=== PATIENT | female | born 1945 | race Native Hawaiian/Other Pacific Islander ===

== ENCOUNTER 2016-10-11 18:14 | Outpatient (CLI) | payer OTHER ==
[~2016-10-11 18:14] MED LIST: AMLO2.5T PO; CLOP75TA2 PO; LISI20TA11 PO; METF100038 PO; METO50TA27 PO; TIMOLOL MALEATE0.5 % OP; UNITH DIRECT75 MCG PO
== END 2016-10-11 18:18 | disposition short-term general hospital (02) ==
LOC: AMB 18:14
DX: M79.604 Pain in right leg (principal); W18.39XA Other fall on same level, initial encounter; Y92.128 Other place in nursing home as the place of occurrence of the external cause
CPT/HCPCS: A0425; A0429

== ENCOUNTER 2016-10-11 18:21 | Emergency (ER) | payer OTHER ==
[~2016-10-11] VITALS: Ht 165.1 cm; Wt 110.7 kg
[2016-10-11 18:29] VITALS: TEMP 97.1
[2016-10-11 21:01] VITALS: BP 155/76
== END 2016-10-11 21:30 | disposition short-term general hospital (02) ==
LOC: ED 18:21
DX: S72.091A Other fracture of head and neck of right femur, initial encounter for closed fracture (principal); M85.861 Other specified disorders of bone density and structure, right lower leg; E11.9 Type 2 diabetes mellitus without complications; W18.39XA Other fall on same level, initial encounter; Y92.128 Other place in nursing home as the place of occurrence of the external cause
CPT/HCPCS: 96372; 96374; 99285; J1885; J2405

== ENCOUNTER 2022-03-10 09:51 | Emergency (ER) | payer OTHER ==
[~2022-03-10] VITALS: Ht 162.6 cm; Wt 99.8 kg
[2022-03-10 09:51] VITALS: BP 138/78; TEMP 97.6
[2022-03-10 10:17] LABS: PLATELET COUNT 218 K/uL (152-353)
[2022-03-10 10:32] LABS: POTASSIUM 3.9 mmol/L (3.6-5.2)
[2022-03-10] MEDS ORDERED: ACTOS15 MG PO (12:57)
[2022-03-10] MEDS ORDERED: ASPIRIN 81 LOW81 MG PO (12:58)
[2022-03-10] MEDS ORDERED: ALLO100T22 PO (12:58)
[2022-03-10] MEDS ORDERED: DULOXETINE HCL30 MG PO (13:00)
[2022-03-10] MEDS ORDERED: LEVO0.1224 PO (13:00)
[2022-03-10] MEDS ORDERED: MULTIVITAMIN AD1 TA2 PO (13:04)
[2022-03-10] MEDS ORDERED: ASENAPINE MALE2.5 MG SL (13:05)
[2022-03-10] MEDS ORDERED: BACTRIM1 TAB PO (13:07)
[2022-03-10] MEDS ORDERED: ASCO500T18 PO (13:08)
[2022-03-10] MEDS ORDERED: BACL10TA4 PO (13:08)
[2022-03-10] MEDS ORDERED: ELIQUIS5 MG PO (13:10)
[2022-03-10] MEDS ORDERED: LEVE500T5 PO (13:11)
[2022-03-10] MEDS ORDERED: GABA300C2 PO (13:14)
[2022-03-10] MEDS ORDERED: TRAMADOL HYDROC50 MG PO (13:16)
[2022-03-10] MEDS ORDERED: [UNRECOGNIZED DRUG - OTHER] EX (13:18)
[2022-03-10] MEDS ORDERED: HYDROCO/APAP1 TA4 PO (13:20)
[2022-03-10] MEDS ORDERED: FAMOTIDINE20 MG PO (13:22)
== END 2022-03-10 11:21 | disposition still patient (30) ==
LOC: ED 09:51
PROVIDERS: Family Medicine
DX: F03.911 Unspecified dementia, unspecified severity, with agitation (principal); F32.A Depression, unspecified; N18.9 Chronic kidney disease, unspecified; Z11.52 Encounter for screening for COVID-19; Z04.6 Encounter for general psychiatric examination, requested by authority
CPT/HCPCS: 80053; 85027; 87635; 93005; 99283; U0003